=== PATIENT | male | born 1975 | race Native Hawaiian/Other Pacific Islander ===

== ENCOUNTER 2020-12-13 10:49 | Outpatient (CLI) | payer OTHER | END 2020-12-13 19:12 | disposition home or self-care (01) | LOC: CT 10:49 | PROVIDERS: ATTEND Nurse Practitioner | DX: I10 Essential (primary) hypertension (principal); E11.9 Type 2 diabetes mellitus without complications; R30.0 Dysuria; R07.89 Other chest pain ==